=== PATIENT | male | born 1960 | race Caucasian/White ===

== ENCOUNTER 2017-12-23 00:30 | Day surgery (SDC) | payer OTHER ==
[~2017-12-23] VITALS: Ht 175.3 cm; Wt 90.3 kg
[2017-12-23] VITALS (7 sets, daily range): BP systolic 104–142; BP diastolic 63–92
[~2017-12-23 00:30] MED LIST: FISH OIL1 CAP PO; GLUC15002 PO; LOSA25TA50 PO
--- NOTE | 2017-12-23 07:32 | Short(Outpt) Discharge Summary ---
Discharge Summary Reason for Hosp/Final Diag: (1) Rectal bleeding Hospital Course & Plan: 3 cm tumor just above dentate line on the left and 1.0 cm pigmented skin lesion left posterolateral perianal skin and 2.0 cm by 1.5 cm anterolateral left perianal skin Departure Discharge to: Home Discharge Instructions Home Meds Reported Medications Glucosamine Hcl (GLUCOSAMINE HCL) 1,500 Mg Tablet, 1500 MG PO DAILY 12/15/17 Losartan Potassium (LOSARTAN POTASSIUM) 25 Mg Tablet, 37.5 MG PO QDAY 12/15/17 Dukedom-3 Fatty Acids (Fish Oil) 1 Cap Capsule, 1 CAP PO DAILY, 0 Refills 07/04/10 Diet: Regular Activity: As Tolerated YAYO RIVERO MD Dec 23, 2017 07:32
--- NOTE | 2017-12-23 07:32 | Post Operative Progress Note ---
Post Operative Progress Note Date: Dec 23, 2017 Time: 10:41 Surgeon: tim Anesthesia: dr tamez Pre-Op Diagnosis: rectal bleeding Post-Op Diagnosis: 1.0 cm pigmented skin lesion perianal skin left posterolatera area. 2.0 cm by 1.5 cm pigmented skin lesion left anteriorlateral perianal area. 3 cm tumor just above the dentate line left lateral position Procedure(s): colonoscopy with trans anal polypectomy and biopsy perianal skin YAYO RIVERO MD Dec 23, 2017 07:32
[2017-12-23] MEDS ORDERED: PROPOFOL EMUL(*) 10MG/ML 20 ML 40 ML ONE (07:43)
[2017-12-23] MEDS ORDERED: MIDAZOLAM 2 MG/2 ML VIAL IVP PRN (08:45)
[2017-12-23] MEDS ORDERED: NORMOSOL R SOLN(*) 1000 ML BAG 1,000 ML IV PRN (08:45)
[2017-12-23] MEDS ORDERED: LIDOCAINE/SOD BICARB 8.4% SYR ID ONE (08:45)
[2017-12-23] MEDS ORDERED: LIDO/EPI 1% MDV 1:100,000 20ML INFIL ONE (10:02)
[2017-12-23] MEDS ORDERED: PROPOFOL EMUL(*) 10MG/ML 20 ML 20 ML ONE ×2 (10:19→10:33)
[2017-12-23] MEDS ORDERED: NEOMYCIN/POLYMYX/BACITR OINT 1 PACKET TP ONE (10:31)
--- NOTE | 2017-12-23 21:21 | OPERATIVE REPORT 1 ---
EVENT DATE: December 23, 2017 SURGEON: Bradly Levy MD ANESTHESIOLOGIST: Neal Milton MD ANESTHESIA: Sedation. PREOPERATIVE DIAGNOSIS Rectal bleeding. POSTOPERATIVE DIAGNOSES 1. Rectal tumor at the dentate line. 2. Perianal skin lesions. PROCEDURES PERFORMED 1. Colonoscopy with transanal polypectomy. 2. Excision of perianal skin lesion. DESCRIPTION OF PROCEDURE The patient was placed in the left lateral decubitus position and given intravenous sedation. Perianal examination revealed a 1 cm in diameter pigmented, raised skin lesion in the left lateral position posteriorly, and then more anteriorly there was another one that was 2 cm x 1.5 cm. They looked very similar. On digital exam, I palpated a mass just inside the sphincter on the left posterior aspect. With that digital exam, I caused this to bleed. The flexible colonoscope was then inserted. We attempted to retroflex and look at the lesion, but because of the blood, I was unable to see. We decided to proceed with the colonoscopy. The scope was advanced to the cecum. He had an excellent bowel prep. The ileocecal valve, the base of the cecum, and the appendiceal orifice were identified. The scope was slowly withdrawn. Care was taken to look behind the haustral folds. No abnormalities were noted in the cecum, right colon, transverse, descending, or sigmoid colon. We got to the rectum and suctioned out the blood. However, he still had some active bleeding , and we were unable to get good visualization with the scope. A bivalve anal retractor was then inserted. There was a 3 cm polypoid projection just above the dentate line, soft with a firm base, and bleeding from it. We injected 1% Xylocaine with epinephrine underneath it to try to lift it up; however, it did not seem to lift up well. We then proceeded to remove some of this tissue with Metzenbaum scissors and a polypectomy snare in order to obtain a good sample and to control the bleeding, but we did not seem to be able to lift this up and get under it. We seemed to get a good specimen for pathology. We then put a couple of [id number] stitches of 2-0 chromic into the site, and this obtained our hemostasis, but we did not get complete clearing of this lesion. We then pulled out the anal retractor and visualized the two skin lesions. We elliptically excised the smaller of the two. They looked very similar. This was done with the Metzenbaum scissors after injecting it with local and was closed with interrupted 2-0 chromic. We reinserted the bivalve anal retractor and inspected for bleeding. We had excellent hemostasis. At this point, the procedure was terminated. We will get the path report to determine a diagnosis and then proceed after that. He will most likely require another procedure in the near future and repeat endoscopy in a year. WILIAM
== END 2017-12-23 11:50 | disposition home or self-care (01) ==
LOC: OR 00:30
PROVIDERS: ATTEND Surgery
DX: D49.0 Neoplasm of unspecified behavior of digestive system (principal); K62.9 Disease of anus and rectum, unspecified
CPT/HCPCS: 00811; 45385; 45388; J2704; 88305; 88344

== ENCOUNTER 2018-02-24 13:48 | Outpatient (RCR) | payer OTHER ==
[2018-01-05 12:01] VITALS: BP 117/74
[2018-01-05 13:22] LABS: PLATELET COUNT, AUTOMATED 273 K/uL (150-450)
--- NOTE | 2018-01-05 19:04 | ONCOLOGY HISTORY AND PHYSICAL ---
REFERRING PROVIDER Bradly Levy MD REASON FOR CONSULTATION Anal/rectal melanoma. CHIEF COMPLAINT Bowel irregularity. HISTORY OF PRESENT ILLNESS Lopez is here today at the request of Dr. 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 He is accompanied by his . He relates his history to me. He reports that for a few months he had noticed changes in his bowel habits, to include decreased caliber as well as blood in the stool. He reports that a prior exam had potentially been consistent with a hemorrhoid, and he expresses regret that he had perhaps let his symptoms go for a bit too long. In any case, he recently visited with Dr. Johnson, and given his particular concerns, he was seen in consultation by Dr. Levy in Surgery. The patient underwent surgical evaluation, and two lesions were noted, one anal and one rectal. These lesions were biopsied, with results of both biopsies being consistent with melanoma. No further surgery was performed. The patient has done better since his surgery in general. He has had some improvement in his bowel habits, and has been more regular. He reports no significant pain. He has noticed no lumps or bumps in the groin. He denies shortness of breath and chest pain, but he does report an occasional cough that has been thought potentially to be due to gastroesophageal reflux. Other than some obvious worry and concern about his diagnosis, he reports no other symptoms. REVIEW OF SYSTEMS Otherwise negative, and all systems were reviewed. PAST MEDICAL HISTORY 1. Hypertension. 2. Dyslipidemia. 3. History of impaired fasting glucose. PAST SURGICAL HISTORY 1. Status post vasectomy in 2009. 2. Reported colonoscopy in 2009. CURRENT MEDICATIONS 1. Losartan. 2. Tobramycin ophthalmic solution as needed. ALLERGIES No known drug allergies. SOCIAL HISTORY The patient is a never smoker. He drinks alcohol rarely. There is no history of illicit drug use. He is , and he works in [employer] at the [employer]. FAMILY HISTORY There is a family history of diabetes, hyperlipidemia, and hypertension. VITAL SIGNS Temperature 97.5, blood pressure 117/74, heart rate is 77, respirations 16, oxygen saturation is 93% on room air. Weight is 91.9 kg. PHYSICAL EXAMINATION GENERAL: Patient is alert and oriented times three in no apparent distress sitting in the exam room chair. He is interactive and pleasant. He appears quite healthy. HEENT: Exam reveals anicteric sclerae. NEUROLOGIC: Exam is grossly nonfocal. SKIN: Exam reveals no concerning rash or lesion. EXTREMITIES: Reveal no edema, clubbing or cyanosis. LABORATORY STUDIES Reviewed per the patient's preceding record. IMAGING None today. PROCEDURES/PATHOLOGY Please see history of present illness. ASSESSMENT AND PLAN Anal/rectal melanoma. I had a lengthy and in-depth discussion with the patient and his today. Symptomatically, he is doing quite well, and his performance status is excellent. We spent time today discussing his recent symptoms, his workup to date, and his diagnosis of melanoma. We discussed that this is an uncommon location for melanoma to develop, and common risk factors for other sites of cutaneous melanoma are not necessarily at play. We discussed that this is likely a primary lesion (or lesions), but there is a very small chance that these could represent metastatic lesions from another primary site. We moved on to discuss staging in detail, and how this impacts prognosis and potential future treatment decision making. I have recommended that he have a PET/CT scan performed as soon as possible. He has no neurologic symptoms currently, so I will hold off on ordering an MRI of the brain. I will send his tumor tissue for BRAF evaluation. We discussed the potential modalities of treatment that could be involved in his care, to include surgical management, radiation therapy, as well as systemic therapy that will at least in part depend on his clinical staging. I have recommended that he visit at the [facility] with providers at the [facility], as well as Dr. Forrester in Surgery. I have reviewed his situation with Dr. Vasques today. We will work to make these appointments happen as soon as possible, and obviously it would be ideal for these visits to happen on the same day. I will plan to see the patient back in my clinic in the next four to six weeks, but this may need to change depending on his treatment plan as determined by further workup and visits in [place]. The patient had multiple insightful and appropriate questions for me today, and I believe I answered all of his questions to his satisfaction. Thank you very much, Dr. Levy for allowing me to take part in the care of this delightful patient. Please do not hesitate to call with any questions or concerns. WILIAM
[~2018-02-24] VITALS: Ht 179.1 cm; Wt 91.9 kg
[~2018-02-24 13:48] MED LIST changes: -DOCU-416 PO; -IOPAMIDOL 76% 75 ML INFUS BTL 75 ML ONE; -NS 0.9% 150 ML BAG 150 ML ONE; -SENN-287 PO
[2018-02-24 13:56] VITALS: BP 125/81
[2018-02-24] MEDS ORDERED: SENN-287 PO (14:01)
[2018-02-24] MEDS ORDERED: DOCU-416 PO (14:01)
== END 2018-03-04 09:02 | disposition home or self-care (01) ==
LOC: ONC 13:48
PROVIDERS: ATTEND Internal Medicine Medical Oncology
DX: C43.51 Malignant melanoma of anal skin (principal); R06.00 Dyspnea, unspecified; R09.02 Hypoxemia
CPT/HCPCS: 81210; 82040; 82247; 82310; 82374; 82435; 82565; 82947; 83615; 84075; 84132; 84155; 84295; 84450; 84460; 84520; 85025; 88381; 99202; 99212

== ENCOUNTER → 2018-02-24 | Outpatient (CLI) | payer OTHER ==
[~2018-02-24] MED LIST changes: +DOCU-416 PO; +IOPAMIDOL 76% 75 ML INFUS BTL 75 ML ONE; +NS 0.9% 150 ML BAG 150 ML ONE; +SENN-287 PO
--- NOTE | 2018-02-24 17:28 | RADIOLOGY IMAGING REPORT ---
FACILITY: [facility] - [place] PATIENT NAME: Lopez Henao : 1960 MR: [id number] V: [id number] EXAM DATE: ORDERING PHYSICIAN: DONNA CARROLL TECHNOLOGIST: Location: [facility] [place] Patient: Lopez Henao : 1960 Visit/Account:[id number] Date of Sevice: 02/24/2018 CTA CHEST WW/O CNTR (PULM ANG) HISTORY: Dyspnea, hypoxia, melanoma ADDITIONAL HISTORY: None. TECHNIQUE: CTA chest with intravenous contrast. Axial imaging acquired following administration of IV contrast timed for maximum opacification of the pulmonary arterial vasculature. Slab 3-D MIP earl nstructed images were also created for further evaluation and interpretation. Reconstruction of the [facility] data set includes multiplanar 2-D in the sagittal and coronal planes and 3-D reconstructed nathan nal slab MIP series. 3-D images were created by the technologist. Dose Lowering Technique One of the following dose optimization techniques was utilized in the performance of this exam: Autom ated exposure control; adjustment of the mA and/or kV according to the patient's size; or use of an i terative reconstruction technique. Specific details can be referenced in the facility's radiology C T exam operational policy. CONTRAST: 75 mL [facility]-370 COMPARISON: None. FINDINGS: Lungs/pleura: There is a 3 mm noncalcified nodule medial aspect right upper lobe best seen on image 35 of series 5. There is a 3 mm noncalcified subpleural nodule posterior aspect of the right lower lobe best seen on image 67 of series 5 There is a 3 mm noncalcified nodule mid right lower lobe best seen on image 67 of series 5. There is a 2 mm noncalcified nodule seen in the posterior aspect of the left upper lobe best seen on image 51 and additional 2 mm nodule anterior aspect left upper lobe also seen on image 51. There is a small amount of atelectasis or scarring in the inferior right middle lobe and lingula. No evidence of acute appearing infiltrates Heart/vessels: Negative. There are no filling defects seen in the pulmonary arteries worrisome for a pulmonary embolus. Mediastinum/lymph nodes: There is a 1.5 x 1 cm right hilar lymph node Visualized upper abdomen: There are multiple hypoattenuating masses within the liver the largest is a bilobed mass in the anterior left lobe measuring 2.1 cm in diameter. Cholelithiasis although no ev idence of biliary ductal dilatation. Spleen appears borderline enlarged although is incompletely mary ged Bones/soft tissues: No aggressive appearing bone lesions are seen Additional findings: None IMPRESSION: No evidence of pulmonary emboli or focal infiltrates At least five micronodules are identified in the lungs concerning for metastases given the patient's diagnosis of melanoma 1.5 x 1 cm right hilar lymph node Multiple hypoattenuating lesions within the liver which are indeterminate Cholelithiasis although no evidence for ductal dilatation Borderline splenomegaly Results were called to DONNA CARROLL at 02/24/2018 5:20 PM. Report Dictated By: Sridevi Loyd MD at 02/24/2018 5:04 PM Report E-Signed By: Sridevi Loyd MD at 02/24/2018 5:23 PM WSN:[id number]
--- NOTE | 2018-02-25 18:53 | ONCOLOGY FOLLOW UP NOTE ---
EVENT DATE: February 24, 2018 REASON FOR FOLLOWUP Anorectal melanoma. CHIEF COMPLAINT Occasional shortness of breath. INTERIM HISTORY Lopez returns to clinic for a follow-up visit today. He is accompanied by his . Since our last visit he has been seen in consultation by Drs. Forrester and Marcos at the [facility]. He underwent a transanal excision of the anorectal melanoma on January [address] Forrester. He did well with the surgery, and although he did have some postop pain, this has largly come under very good control. He visited yesterday in followup with Dr. Rodríguez, and he is here to visit with me today about his options for treatment. His only new complaint today is that occasionally he feels the need to "catch his breath," although he has been walking about a mile a day without significant shortness of breath. He reports no fever or productive cough. His appetite is good, and his weight has been stable. REVIEW OF SYSTEMS Otherwise negative and all systems are reviewed. PAST MEDICAL HISTORY 1. Hypertension. 2. Dyslipidemia. 3. History of impaired fasting glucose. PAST SURGICAL HISTORY 1. Status post vasectomy in 2009. 2. Reported colonoscopy in 2009. CURRENT MEDICATIONS 1. Losartan. 2. Tobramycin ophthalmic solution as needed. ALLERGIES No known drug allergies. SOCIAL HISTORY The patient is a never smoker. He drinks alcohol rarely. There is no history of illicit drug use. He is , and he works in [employer] at the [employer]. FAMILY HISTORY There is a family history of diabetes, hyperlipidemia, and hypertension. VITAL SIGNS Temperature 97.0, blood pressure 125/81, heart rate is 95, respirations 16, oxygen saturation is 97% on room air. PHYSICAL EXAMINATION GENERAL: Patient is alert and oriented times three in no apparent distress sitting in the exam room chair. Physical exam is deferred for extensive discussion. LABORATORY STUDIES Reviewed per the [facility] records, respectively. IMAGING Reviewed per the [facility] and [facility] records, respectively. PATHOLOGY From January 26, 2018: Rectum, transanal excision reveals invasive melanoma with peripheral margins focally involved by invasive melanoma and a separate focus of melanoma; external anal skin excision reveals invasive melanoma with peripheral margins also involved by melanoma in situ; internal anal sphincter margin excision revealed no evidence of melanoma. ASSESSMENT AND PLAN Anal/rectal melanoma. I had a very lengthy and in-depth discussion with Lopez and his today. We spent time discussing his consultations at the [facility], as well as his recent transanal excision and surgical pathology results. He is well aware of the positive margins noted from his surgery, and he has discussed this at length with Drs. Forrester and Marcos. He understands that this is a difficult situation, and we spent time today discussing his options for ongoing treatment. Given his shortness of breath complaints, and modest hypoxia while ambulating today, I have recommended that he go for a CTA of the chest. Hopefully this will be performed this afternoon. I would certainly hope that we see no evidence of metastatic disease on this upcoming study. Lopez has a very high risk of the development of systemic/metastatic disease due to the known nature of melanomas that begin in this part of the GI tract. He has discussed the merits of systemic therapy at length with Dr. Rodríguez. His options at this point would include nivolumab, ipilimumab, the combination of both of these medications. We spent a good deal of time today discussing concerns about the toxicity for the combination of ipilimumab and nivolumab. We also discussed goals of care, knowing that microscopic disease remains in the bowel. In all likelihood these maneuvers would be palliative in nature, in an attempt to try to stave off/delay the development of metastatic disease. As discussed, I would want to discuss his situation further with Drs. Forrester and Marcos, but at this point, I would have to agree that further/extensive surgery of the bowel, or possible addition of radiation therapy to his treatment plan should be met with some pause. After extensive discussion today, Lopez does seem to understand his predicament, and he does plan to visit with Dr. Rodríguez again to discuss the merits of receiving combination therapy with ipilimumab and nivolumab. As discussed, given the toxicity of this regimen, I do think that administration at the [facility] would be reasonable, but that we would be more than happy in this clinic to provide supportive care and any help that he would need along the way. I will plan to follow up with him as needed. He is interested in possibly obtaining another opinion. He has entertained the idea of traveling to [place] to [facility], and I think this is reasonable. I have also discussed with him that I will do some additional research for him in this regard and get back to him with any ideas. Lopez and his had multiple questions for me today, and I believe I answered all of their questions to their satisfaction. I spent a total of 45 minutes of time face to face with the patient and his today, and 40 minutes of this was spent in direct counseling and coordination of care. WILIAM
== END ==
LOC: CT 15:48
PROVIDERS: ATTEND Internal Medicine Medical Oncology
DX: R91.8 Other nonspecific abnormal finding of lung field (principal); K80.20 Calculus of gallbladder without cholecystitis without obstruction
CPT/HCPCS: 36415; Q9967; 71275; 82310; 82374; 82435; 82565; 82947; 84132; 84295; 84520

== ENCOUNTER → 2019-04-25 | Outpatient (CLI) | payer OTHER ==
[~2019-04-25] MED LIST changes: +DOCU-416 PO; -LOSA25TA50 PO; +LOSA25TA57 PO; +SENN-287 PO
== END ==
LOC: LAB 11:11
PROVIDERS: ATTEND Nurse Practitioner Adult Health
DX: C20 Malignant neoplasm of rectum (principal)
CPT/HCPCS: 87506